=== PATIENT | male | born 1995 | race African-American/Black ===

== ENCOUNTER 2023-08-16 02:06 | Emergency (ER) | payer MEDICAID, OTHER ==
[~2023-08-16] VITALS: Ht 175.3 cm; Wt 95.5 kg
[2023-08-16 02:50] VITALS: BP 136/73; PULSE 95; RESP 20; TEMP 97.9; O2SAT 98
[2023-08-16] MEDS ORDERED: AMOX875T4 PO (03:10)
[2023-08-16] MEDS ORDERED: IBUP-1456 PO (03:10)
[2023-08-16] MEDS: BENZOCAINE (DENTAL) 20 % SPRAY 60ML MT ONE (03:20)
[2023-08-16] MEDS: cefTRIAXone SOD 1,000 MG VL IM ONE (03:21)
[2023-08-16] MEDS: KETOROLAC TROMETH 60MG/2ML VIAL IM ONE (03:21)
== END 2023-08-16 03:34 | disposition home or self-care (01) ==
LOC: ER 02:06
DX: S02.5XXA Fracture of tooth (traumatic), initial encounter for closed fracture (principal); K04.7 Periapical abscess without sinus; F12.10 Cannabis abuse, uncomplicated; X58.XXXA Exposure to other specified factors, initial encounter; Y93.89 Activity, other specified; Y92.89 Other specified places as the place of occurrence of the external cause; Y99.8 Other external cause status
CPT/HCPCS: 96372; 99284; J0696; J1885

== ENCOUNTER 2023-10-26 12:26 | Emergency (ER) | payer MEDICAID ==
[~2023-10-26] VITALS: Ht 175.3 cm; Wt 85.0 kg
[~2023-10-26 12:26] MED LIST: AMOX875T4 PO; IBUP-1456 PO
[2023-10-26] MEDS: SODIUM CHLORIDE 0.9% 1,000 ML IV ONE (13:34)
[2023-10-26 14:38] LABS: Amphetamine Screen, Urine Neg (NEGATIVE)
[2023-10-26 14:40] LABS: Barbiturate Scree,Urine Neg (NEGATIVE); Benzodiazephine Screen, Urine Pos (NEGATIVE); Cocaine Screen, Urine Pos (NEGATIVE); Opiate Scree,Urine Neg (NEGATIVE); Phencyclidine Screen, Urine Neg (NEGATIVE)
[2023-10-26 14:41] LABS: Cannabinoid Screen, Urine Pos (NEGATIVE)
[2023-10-26 18:40] VITALS: BP 132/96; PULSE 68; RESP 16; TEMP 98.9; O2SAT 98
== END 2023-10-26 21:33 | disposition left against medical advice (07) ==
LOC: ER 12:26
DX: F11.93 Opioid use, unspecified with withdrawal (principal); Z79.899 Other long term (current) drug therapy
CPT/HCPCS: 80307

== ENCOUNTER 2024-08-18 08:43 | Emergency (ER) | payer MEDICAID ==
[~2024-08-18] VITALS: Ht 160 cm; Wt 91.6 kg
[2024-08-18 08:55] VITALS: BP 139/97; PULSE 83; RESP 19; TEMP 98; O2SAT 98
--- NOTE | 2024-08-18 09:08 | ED.PDOC ---
Eye-HPI HPI Comments 29 y.o male presents to the ED for a chief complaint of right lower tooth pain x 1 month that has progressively worsened. Patient reports dental appointment is in 3 days but pain became unbearable this morning. Patient denies any swelling, fever, chills, bleeding or pus discharge. He denies any medical history and does smoke marijuana and tobacco. Chief Complaint: Tooth Pain Time Seen by MD: 08:53 Primary Care Provider: none Reviewed Notes: Nurses Notes, Medications, Allergies Allergies: Coded Allergies: NO KNOWN ALLERGIES (Unverified , 08/16/23) Home Meds Active Scripts Ibuprofen Micronized (MOTRIN TABLET) 600 Mg Tb, 600 MG PO TID PRN for 5 Days, #15 TAB *Black box warning-NSAIDS can increase risk of [place] & hypertension, GI irritation, ulceration, bleed, perferation. Do not use post cardiac surgery. Use short duration/lowest effective dose. Prov:SHAHRIAR IRBY MD 08/18/24 Amoxicillin & Pot Clavulanate (Augmentin) 500 Mg Tab, 1 TAB PO BID for 10 Days, #20 TAB Prov:SHAHRIAR IRBY MD 08/18/24 Ibuprofen (Ibuprofen) 800 Mg Tab, 1 TAB PO TID PRN, #30 TAB 0 Refills Prov:DARIUS OLIVERA 08/16/23 Amoxicillin & Pot Clavulanate (Amoxicillin/Potassium Cla) 875 Mg Tab, 1 TAB PO BID for 7 Days, #14 TAB 0 Refills Prov:DARIUS OLIVERA 08/16/23 Information Source: Patient Mode of Arrival: Ambulatory Timing: Months (1) Duration: Since onset Quality: Pain Mouth Location: Right, Lower, Tooth/Teeth Mouth: Right, Lower, Tender Associated signs and symptoms: Tooth Pain Past Medical History PAST MEDICAL HISTORY: Denies Surgical History: Denies all surgeries Family History Family History: Unknown Social History Smoker: Cigarettes Alcohol: Denies ETOH Use Drugs: Marijuana, Other Lives In: Home Constitutional: denies: chills, diaphoresis, fatigue, fever, malaise, sweats, weakness, others EENTM: reports: others (dental pain to the right lower tooth ); denies: blurred vision, double vision, ear bleeding, ear discharge, ear drainage, ear pain, ear ringing, eye pain, eye redness, hearing loss, mouth pain, mouth swelling, nasal discharge, nose bleeding, nose congestion, nose pain, photophobia, tearing, throat pain, throat swelling, voice changes Respiratory: denies: cough, hemoptysis, orthopnea, SOB at rest, shortness of breath, SOB with excertion, stridor, wheezing, others Cardiovascular: denies: chest pain, dizzy spells, diaphoresis, Dyspnea on exertion, edema, irregular heart beat, left arm pain, lightheadedness, palpitations, PND, syncope, others Gastrointestinal: denies: abdomen distended, abdominal pain, blood streaked bowels, constipated, diarrhea, dysphagia, difficulty swallowing, hematemesis, melena, nausea, poor appetite, poor fluid intake, rectal bleeding, rectal pain, vomiting, others Genitourinary: denies: burning, dysuria, flank pain, frequency, hematuria, incontinence, penile discharge, penile sore, pain, testicle pain, testicle swelling, urgency, others Neurological: denies: dizziness, fainting, headache, left sided numbness, left sided weakness, numbness, paresthesia, pre-existing deficit, right sided numbness, right sided weakness, seizure, speech problems, tingling, tremors, weakness, others Musculoskeletal: denies: back pain, gout, joint pain, joint swelling, muscle pain, muscle stiffness, neck pain, others Integumetry: denies: bruises, change in color, change in hair/nails, dryness, laceration, lesions, lumps, rash, wounds, others Allergic/Immunocompromised: denies: Difficulty Healing, Frequent Infections, Hives, Itching, others Hematologic/Lymphatic: denies: anemia, blood clots, easy bleeding, easy bruising, swollen glands, others Endocrine: denies: excessive hunger, excessive sweating, excessive thirst, excessive urination, flushing, intolerance to cold, intolerance to heat, unexplained weight gain, unexplained weight loss, others Psychiatric: denies: anxiety, bipolar disorder, depression, hopeless, panic disorder, schizophrenia, sleepless, suicidal, others All Other Systems: Reviewed and Negative Physical Exam General Appearance: Moderate Distress HEENT: Other (Dental caries right lower teeth) Neck: Full Range of Motion, Non-Tender, Normal, Normal Inspection Respiratory: Chest Non-Tender, Lungs Clear, No Accessory Muscle Use, No Respiratory Distress, Normal Breath Sounds Cardiovascular: No Edema, No JVD, No Murmur, No Gallop, Normal Peripheral Pulses, Regular Rate/Rhythm Breast Exam: Deferred Gastrointestinal: No Organomegaly, Non Tender, No Pulsatile Mass, Normal Bowel Sounds, Soft Genitalia: Deferred Pelvic: Deferred Rectal: Deferred Extremities: No calf tenderness, Normal capillary refill, Normal inspection, Normal range of motion, Non-tender, No pedal edema Musculoskeletal : Apperance: Normal Neurologic: Alert, sales engagement executive II-XII nml as Tested, No Motor Deficits, Normal Affect, Normal Mood, No Sensory Deficits Cerebellar Function: Normal Reflexes: Normal Skin: Dry, Normal Color, Warm Peripheral Pulses: 3+ Radial (R), 3+ Radial (L) Lymphatic: No Adenopathy Was a procedure done? Was a procedure done?: No EENT DIFF Eye: N/A Mouth: Other (abscess ) Other Differential Diagnosis Dental Caries, Pulpitis, Periapical Abscess, Periodontitis, Loose or Broken Filling/Trilby, Sensitive Teeth X-Ray, Labs, Meds, VS Vital Signs Date Time Temp Pulse Resp B/P (MAP) Pulse Ox O2 Delivery O2 Flow Rate FiO2 08/18/24 08:55 98.0 83 19 139/97 (111) 98 98.0 08/18/24 08:50 83 19 98 Room Air 08/18/24 08:50 98.0 83 19 139/97 (111) 98 98.0 Patient alert. Complaining of tooth pain. Vitals stable. Answering questions. No leg swelling. No chest pain. Saturation pristine on room air. On examination he does have tooth decay. Was given prescription Motrin Augmentin antibiotic. Continues to smoke cigarettes pain Counseled patient on effects of smoking cigarettes for 15 minutes. Reviewed his history. Explained to the patient. Was told to follow up with his primary care physician. Was told to come back if there is any problem. Time of 1ST Reevaluation: 09:08 Reevaluation 1ST: Improved Patient Education/Counseling: Diagnosis, Treatment, Prognosis Family Education/Counseling: No Family Present Departure 1 Departure Time of Disposition: :29 Impression: Primary Impression: Dental infection Disposition: HOME / SELF CARE / HOMELESS Condition: Good e-Prescriptions Ibuprofen Micronized (MOTRIN TABLET) 600 Mg Tb 600 MG PO TID PRN for 5 Days, #15 TAB *Black box warning-NSAIDS can increase risk of [place] & hypertension, GI irritation, ulceration, bleed, perferation. Do not use post cardiac surgery. Use short duration/lowest effective dose. Prov: SHAHRIAR IRBY MD 08/18/24 Amoxicillin & Pot Clavulanate (Augmentin) 500 Mg Tab 1 TAB PO BID for 10 Days, #20 TAB Prov: SHAHRIAR IRBY MD 08/18/24 Discharged With: Self Critical Care Note Critical Care Time?: No Stability Stability form required: No I personally scribed for SHAHRIAR IRBY MD ([email or web address]) on 08/18/24 at 09:08. Electronically submitted by Karli Karimi ([facility]). SHAHRIAR IRBY MD Aug 18, 2024 09:08
[2024-08-18] MEDS ORDERED: IBU600T PO (09:30)
[2024-08-18] MEDS ORDERED: AMOX500T86 PO (09:30)
== END 2024-08-18 09:27 | disposition home or self-care (01) ==
LOC: ER 08:43
DX: K04.7 Periapical abscess without sinus (principal); F17.210 Nicotine dependence, cigarettes, uncomplicated